=== PATIENT | male | born 1965 | race Caucasian/White ===

== ENCOUNTER → 2023-11-26 09:32 | Outpatient (CLI) | payer OTHER, SELFPAY ==
--- NOTE | ~2023-11-26 | XR_ITS ---
XR ankle LT min 3V 11/26/2023 09:57 Indication: Chronic left ankle pain Procedure: 4 views left ankle Comparison: No prior studies for comparison. Findings: There is polyarticular osteoarthritis, most severe in the mid foot. There is mild osteoarth ritis of the ankle joint. Small degenerative calcaneal enthesophytes. No acute fracture or traumatic malalignment. There is moderate lateral soft tissue swelling. 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 Reviewed, dictated and finalized at location B. 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
== END ==
PROVIDERS: PCP Family Medicine; Visit Provider Nurse Practitioner Family
DX: M19.072 Primary osteoarthritis, left ankle and foot (principal)
CPT/HCPCS: 73610